=== PATIENT | female | born 1955 | race Hispanic/Latino ===

== ENCOUNTER 2019-01-01 15:00 | Outpatient (CLI) | payer MEDICARE | END 2019-01-01 15:01 | disposition home or self-care (01) | LOC: LABHHL 15:00 | PROVIDERS: ATTEND Surgery | DX: N60.02 Solitary cyst of left breast (principal) | CPT/HCPCS: 88112 ==

== ENCOUNTER 2020-05-29 09:31 | Outpatient (CLI) | payer MEDICARE ==
--- NOTE | 2020-05-29 12:04 | Mammography Report ---
DIGITAL DIAGNOSTIC MAMMOGRAM, 05/29/2020 CLINICAL INFORMATION / INDICATION: BILAT BREAST PAIN TECHNIQUE: Digital bilateral mammographic imaging was performed. COMPARISON: Prior mammograms 01/01/2019, 11/28/2018, and 09/22/2015 FINDINGS: Breast Density: The breasts are almost entirely fatty. No dominant mass, suspicious calcifications or architectural distortion in either breast. There is stable benign post reduction change in both breasts. There has been no significant change co mpared with the prior examinations. IMPRESSION: 1. There is no mammographic abnormality to account for bilateral breast pain, therefore clinical anna elation is recommended. Follow up recommendation: Routine yearly BI-RADS Category 2: Benign. A "normal" or negative report should not discourage follow up or biopsy of a clinically significant f inding. A written summary of these findings will be mailed to the patient. The patient will be entered into a mammography reporting system which will generate a reminder letter for the patient's next appointmen t at the appropriate interval. According to the [employer], yearly mammograms are recommended starting at age 40 and continuing as long as a woman is in good health. Breast MRI is recommended for women with an francis roximately 20-25% or greater lifetime risk of breast cancer, including women with a strong family his tory of breast or ovarian cancer and women who have been treated for Hodgkin's disease. Signer Name: Salome Winter MD Signed: 05/29/2020 12:00 PM Workstation Name: [id number]
== END 2020-05-29 09:32 | disposition home or self-care (01) ==
LOC: SPVWC 09:31
PROVIDERS: ATTEND Surgery
DX: R92.8 Other abnormal and inconclusive findings on diagnostic imaging of breast (principal)
CPT/HCPCS: 77066; G0279